=== PATIENT | female | born 1955 | race Caucasian/White ===

== ENCOUNTER 2022-11-14 20:29 | Inpatient (IN) | payer OTHER, MEDICAID ==
[~2022-11-14] VITALS: Ht 147.3 cm; Wt 49.9 kg
[2022-11-14 20:29] VITALS: BP 162/68; PULSE 80; RESP 17; TEMP 97.9; O2SAT 96
--- NOTE | 2022-11-14 20:34 | NUR ---
PT BIBA TO BED 03
--- NOTE | 2022-11-14 20:35 | NUR ---
PATIENT NICK VIA JENNI, FOUND WANDERING THE STREETS AND A FAMILY MEMBER PICKED HER UP AND CALLED 911 PATIENT HAS ALOC AND HAD A BLOOD SUGAR = 550 AT TIME OF ASSESSMENT FROM AMBULANCE
[2022-11-14] MEDS ORDERED: cefTRIAXone 1,000 MG in DEXT 5% MINI-BAG PLUS 50 ML IV ONE (20:40)
[2022-11-14] MEDS ORDERED: NACL 0.9% 1,000 ML IV SCH (20:40)
--- NOTE | 2022-11-14 20:53 | NUR ---
RADIOLOGY AT BEDSIDE
[2022-11-14] MEDS ORDERED: cefTRIAXone 1,000 MG VIAL ONE (21:02)
[2022-11-14 21:26] LABS: BASOPHILS # (AUTO) 0.1 K/uL (0.00-0.22); BASOPHILS % (AUTO) 0.9 % (0.0-2.0); EOSINOPHILS # (AUTO) 0.2 K/uL (0-0.4); EOSINOPHILS % (AUTO) 2.8 % (0.0-4.0); HEMATOCRIT 32.5 % (36-48); HEMOGLOBIN 11.9 g/dL (12.0-16.0); LYMPHOCYTES # (AUTO) 1.4 K/uL (2.5-16.5); LYMPHOCYTES % (AUTO) 23.3 % (20.5-51.1); MEAN CORPUSCULAR HEMOGLOBIN 33 pg (27-31); MEAN CORPUSCULAR HGB CONC 37 g/dL (33-37); MEAN CORPUSCULAR VOLUME 89.1 fL (80-94); MONOCYTES # (AUTO) 0.4 K/uL (0.8-1.0); PLATELET COUNT (AUTO) 193 K/uL (140-450); RED BLOOD CELL COUNT(AUTO) 3.65 MIL/uL (4.20-5.40); RED CELL DISTRIBUTION WIDTH 13.8 % (11.6-13.7); WHITE BLOOD COUNT (AUTO) 6.1 K/uL (4.8-10.8)
[2022-11-14 21:59] LABS: ALBUMIN 2.1 g/dL (3.4-5.0); ANION GAP 7.2 (8-16); CARBON DIOXIDE 30.7 mmol/L (21-32); CREATININE 0.7 mg/dL (0.6-1.3); TOTAL BILIRUBIN 0.5 mg/dL (0.0-1.0)
[2022-11-14 22:01] LABS: POTASSIUM 2.9 mmol/L (3.5-5.1)
--- NOTE | 2022-11-14 22:03 | NUR ---
RECEIVED CALL FROM THE LAB, PATIENT WITH CRITICAL LABS POTASSIUM = 2.9 GLUCOSE = [phone] DR. PARSONS NOTIFIED
[2022-11-14] MEDS ORDERED: KCL 20 MEQ IN 100 mL PREMIX 200 ML IV ONE (22:10)
[2022-11-14] MEDS ORDERED: NACL 0.9% 1,000 ML IV ONE (22:10)
[2022-11-14] MEDS ORDERED: POTASSIUM CHLORIDE 10 MEQ TABER PO ONE (22:10)
[2022-11-14 22:14] LABS: APPEARANCE,URINE CLEAR (CLEAR); BILIRUBIN,URINE NEGATIVE (NEGATIVE); BLOOD, URINE 1+ (NEGATIVE); COLOR,URINE YELLOW (YELLOW); LEUKOCYTE ESTERASE ,URINE NEGATIVE (NEGATIVE); NITRITE, URINE NEGATIVE (NEGATIVE); UGLUCOSE 2+ (NEGATIVE)
--- NOTE | 2022-11-14 22:53 | NUR ---
DID NOT ADMINISTER 2ND BOLUS OF NORMAL SALINE, PATIENT HAS BLE EDEMA. CURRENT IVF IS RUNNING AT 3ML/HR
[2022-11-14 22:56] LABS: RBC,URINE 0-5 /HPF (0-5)
--- NOTE | 2022-11-14 23:11 | NUR ---
CALL PLACED TO UNKNOWN FAMILY MEMBER, NO ANSWER, LEFT VOICEMAIL
[2022-11-14] MEDS: NACL 0.9% 1,000 ML IV SCH (23:15)
--- NOTE | 2022-11-14 23:21 | NUR ---
PATIENT IS AWARE THAT SHE IS IN THE HOSPITAL DOES NOT HAVE PHONE NUMBERS FOR ANY FAMILY MEMBERS DTR'S NAME IS EVIE COUSIN'S NAME IS KEYA PROVIDED PATIENT WITH CLEAN AND DRY ADULT DIAPER PER ER MD, PATIENT TO REMAIN NPO PATIENT IS PENDING ADMISSION
--- NOTE | 2022-11-15 00:19 | NUR ---
RECEIVED PHONE CALL FROM KEYA MAGAÑA WHO STATES THAT SHE IS PATIENT'S SISTER. SHE PICKED UP PATIENT FROM WANDERING THE STREET, TOOK PATIENT TO HER (KEYA'S) HOME AND CALLED 911. KEYA REPORTS THAT PATIENT WAS RECENTLY ADMITTED AT [facility] ON 11/10/2022 AND WAS DISCHARGED WITH AN UNKNOWN DIAGNOSIS/MEDICATIONS. PER KEYA, PATIENT'S DTR SONAM PICKED UP PATIENT FROM HOSPITAL. PATIENT'S CHILDREN DO NOT WANT TO BE INVOLVED WITH HER CARE. DTR SONAM MAKES PATIENT SIT OUTSIDE WHEN SHE LEAVES HER HOME TO GO TO WORK AND PATIENT IS NOT ALLOWED TO ENTER THE HOME AGAIN UNTIL DTR RETURNS HOME FROM WORK. PATIENT SPENDS HER DAYS SITTING ON THE FRONT PORCH OR WANDERING THE STREET. DOES NOT HAVE ACCESS TO FOOD PATIENT'S GRANDSON HAS FULL ACCESS AND USE OF PATIENT'S MAGGIE CARD PATIENT'S DTR AND SON-IN-LAW USE PATIENT'S MONEY AND DO NOT ALLOW PATIENT TO EAT WITH THEM, NOR POVIDE FOOD FOR PATIENT TO EAT. KEYA STATES THAT SHE IS UNAWARE OF PATIENT'S FULL MEDICAL HISTORY ASIDE FROM THE DIABETES AND THE DEPENDENCE ON INSULIN. PER KEYA, PATIENT HAS MEDICARE AND IEHP, DOES NOT KNOW NAME AND/OR CONTACT INFORMATION FOR A PCP, ALSO REPORTS THAT PATIENT LOST HER PURSE WITH ALL OF HER IDENTIFICATION AND INSURANCE CARDS. PATIENT HAS BEEN STAYING INTERMITTENTLY AT [facility] AND HAS HAD ALTERED MENTAL STATUS FOR A FEW WEEKS "PROBABLY DUE TO HER DIABETES" AND HAS SWOLLEN FEET AND LEGS PROBABLY 2 OR MORE DAYS. KEYA STATES THAT PATIENT WILL NEED TO BE PLACED IN A [facility] OR OTHER CARE FACILITY BECAUSE SHE CAN NOT CARE FOR HERSELF AND HER CHILDREN DO NOT WANT TO BE INVOLVED. VERBALLY NOTIFIED DR. FERRIS REGARDING CONVERSATION WITH PATIENT'S FAMILY MEMBER.
--- NOTE | 2022-11-15 01:26 | NUR ---
pericare provided for patient. pt tolerated well.
--- NOTE | 2022-11-15 03:06 | NUR ---
[facility] CONTACTED AND SPOKE SONU Rowe REPORT # [id number] Addendum: 11/15/22 at 0528 by [email or web address] FAX NUMBERS TO SEND REPRT [phone]
--- NOTE | 2022-11-15 04:29 | NUR ---
PT SWITCHED TO BED 4 FROM BED 3
[2022-11-15] MEDS: BLOOD GLUCOSE MONITORING 1 DEV DEV FS SCH ×6 (04:44→20:43)
--- NOTE | 2022-11-15 05:00 | NUR ---
Note suzie in EDM - 11/15/22 at 0547 by [email or web address] UNABLE TO SCAN PATIENT TO ADMINISTER MEDICATIONS DUE TO INCORRECT BAR CODE PRINTING OUT FROM ER. CHARGE NURSE (SOFY IS AWARE) MEDICATIONS ADMINISTERED TO PATIENT: -MORPHINE 4MG ZOFRAN 2MG PATIENT HAS ORDER FOR VANCOMYCIN, UNABLE TO START IV ABX. PATIENT IS PENDING BLOOD CULTURES, (DR. FERRIS) IS AWARE
[2022-11-15] MEDS: INSULIN LISPRO SLIDING SCALE 100 UNITS/ML VIAL SUBQ PRN ×4 (05:04→20:43)
--- NOTE | 2022-11-15 05:04 | NUR ---
UNABLE TO SCAN PATIENT TO ADMINISTER MEDICATIONS DUE TO INCORRECT BAR CODE PRINTING OUT FROM ER. CHARGE NURSE (SOFY IS AWARE) MEDICATION: INSULIN 6 UNITS
[2022-11-15] MEDS ORDERED: MORPHINE SULFATE 2 MG/ML SYR IVP PRN (07:20)
[2022-11-15] MEDS ORDERED: ACETAMINOPHEN 325 MG TAB PO PRN (07:20)
[2022-11-15] MEDS ORDERED: DOCUSATE SODIUM 100 MG GELCAP PO PRN (07:20)
[2022-11-15] MEDS ORDERED: ONDANSETRON 4 MG/2 ML VIAL IVP PRN (07:20)
[2022-11-15] MEDS ORDERED: ZOLPIDEM 10 MG TAB PO PRN (07:20)
--- NOTE | 2022-11-15 07:27 | NUR ---
Pt report given to NATALIA. Transfer of care at this time.
--- NOTE | 2022-11-15 07:30 | NUR ---
Report recieved from WILLAM Marie for transfer of care.
[2022-11-15 07:33] LABS: ANION GAP 8.8 (8-16); CARBON DIOXIDE 28.8 mmol/L (21-32); CREATININE 0.5 mg/dL (0.6-1.3); POTASSIUM 3.6 mmol/L (3.5-5.1)
--- NOTE | 2022-11-15 07:38 | NUR ---
Spoke to Ines Kan, patients niece, states she had a missed phone call. Informed her that we are unsure who called her, but that patient is here at the hospital.
[2022-11-15] MEDS ORDERED: MAG SULF 2000 MG/WATER PREMIX 50 ML IV PRN (08:00)
--- NOTE | 2022-11-15 08:17 | NUR ---
Dr. Marquez, admitting doctor, evaluating patient at bedside. Recieved orders for Blood sugar check at 0900. Orders carried out.
--- NOTE | 2022-11-15 08:22 | NUR ---
The patient's care was reviewed and supervised by [facility], RN.
[2022-11-15 08:35] VITALS: BP 135/75; PULSE 66; PULSE 73; RESP 18; TEMP 97.6; O2SAT 99
--- NOTE | 2022-11-15 08:35 | NUR ---
RECEIVED PT FROM PRESCHOOL PARAPROFESSIONAL VIA JENNI, PT IS AWAKE, ALERT, ON ROOM AIR, IV LINE NOTED ON THE LEFT AC G./ 20 WITH IVF NS INFUSING AT 100ML/HR, PITTING EDEMA +1 WAS NOTED ON THE BILATERAL LOWER EXTREMITIES, NO SIGN OF DISTRESS NOTED AND WILL CONTINUE TO MONITOR PT.
[2022-11-15] MEDS: NACL 0.9% 1,000 ML IV SCH ×2 (09:15→19:40)
--- NOTE | 2022-11-15 10:54 | NUR ---
RECEIVED A TELEPHONE ORDER TO START PT ON A DIABETIC DIET
[2022-11-15 12:00] VITALS: BP 149/74; PULSE 69; PULSE 85; RESP 18; TEMP 97; O2SAT 100
[2022-11-15 16:00] VITALS: BP 154/75; PULSE 67; PULSE 73; RESP 18; TEMP 97.9; O2SAT 99
--- NOTE | 2022-11-15 19:38 | NUR ---
ENDORSED PT TO NIGHT RN FOR CONTINUITY OF CARE, PT IS STABLE AT THIS TIME.
--- NOTE | 2022-11-15 19:40 | NUR ---
RECEIVED PT FROM AM NURSE FOR CONTINUITY OF CARE. PT IS STABLE
[2022-11-15 20:00] VITALS: BP 157/74; PULSE 73; PULSE 84; RESP 18; TEMP 97.7; O2SAT 98; O2SAT 99
[2022-11-15] MEDS: LORazepam 2 MG/ML VIAL IVP PRN (21:57)
[2022-11-16] VITALS: BP 136/81; PULSE 64; PULSE 80; RESP 18; TEMP 97.4; O2SAT 98
[2022-11-16] MEDS: INSULIN LISPRO SLIDING SCALE 100 UNITS/ML VIAL SUBQ PRN ×4 (00:25→23:58)
[2022-11-16] MEDS: BLOOD GLUCOSE MONITORING 1 DEV DEV FS SCH ×6 (00:26→19:51)
[2022-11-16] MEDS: LORazepam 2 MG/ML VIAL IVP PRN ×2 (03:17→20:42)
[2022-11-16 04:00] VITALS: BP 140/79; PULSE 76; PULSE 86; RESP 18; TEMP 98.1; O2SAT 98
[2022-11-16] MEDS: NACL 0.9% 1,000 ML IV SCH (05:01)
[2022-11-16 05:29] LABS: BASOPHILS % (AUTO) 0.6 % (0.0-2.0); EOSINOPHILS # (AUTO) 0.2 K/uL (0-0.4); EOSINOPHILS % (AUTO) 3.8 % (0.0-4.0); HEMATOCRIT 31.6 % (36-48); HEMOGLOBIN 11.4 g/dL (12.0-16.0); LYMPHOCYTES % (AUTO) 36.4 % (20.5-51.1); MEAN CORPUSCULAR HEMOGLOBIN 33 pg (27-31); MEAN CORPUSCULAR HGB CONC 36 g/dL (33-37); MEAN CORPUSCULAR VOLUME 90.3 fL (80-94); MONOCYTES # (AUTO) 0.4 K/uL (0.8-1.0); MONOCYTES % (AUTO) 6.5 % (1.7-9.3); NEUTROPHILS # (AUTO) 2.9 K/uL (1.8-7.7); NEUTROPHILS % (AUTO) 52.7 % (42.2-75.2); PLATELET COUNT (AUTO) 162 K/uL (140-450); RED CELL DISTRIBUTION WIDTH 13.5 % (11.6-13.7); WHITE BLOOD COUNT (AUTO) 5.6 K/uL (4.8-10.8)
[2022-11-16 05:39] LABS: ANION GAP 7.7 (8-16); CARBON DIOXIDE 27.6 mmol/L (21-32); CREATININE 0.6 mg/dL (0.6-1.3); POTASSIUM 3.3 mmol/L (3.5-5.1)
--- NOTE | 2022-11-16 07:15 | NUR ---
ENDORSED PT TO AM NURSE FOR CONTINUITY OF CARE.PT IS STABLE
[2022-11-16 08:00] VITALS: BP 170/57; PULSE 76; RESP 18; TEMP 97.4; O2SAT 98; O2SAT 99
[2022-11-16] MEDS: POTASSIUM CHLORIDE 10 MEQ TABER PO PRN (08:13)
[2022-11-16] MEDS ORDERED: lisinopriL 20 MG TAB PO SCH (09:58)
--- NOTE | 2022-11-16 11:24 | NUR ---
PATIENT HAS BEEN SCREENED AND CATEGORIZED MODERATE NUTRITION RISK. PATIENT WILL BE SEEN WITHIN 3-5 DAYS OF ADMISSION. 11/14/22-11/19/[address]
[2022-11-16 16:00] VITALS: BP 118/66; PULSE 70; RESP 18; TEMP 97.2; O2SAT 95
--- NOTE | 2022-11-16 18:40 | NUR ---
PT RESTING IN BED, EATING DINNER. FAMILY AT BEDSIDE. AAO x2-3. RESPIRATIONS EVEN AND UL ON RA. NO SIGNIFICANT CHANGES THROUGHOUT SHIFT. IV SITE TO RFA 24G, INTACT AND WNL. BED IN LOWEST POSITION, CALL LIGHT IN REACH, SAFETY MEASURES IN PLACE.
--- NOTE | 2022-11-16 19:11 | NUR ---
REPORT GIVEN TO PM NURSE FOR CONTINUITY OF CARE.
--- NOTE | 2022-11-16 19:30 | NUR ---
RECEIVED PT FROM AM NURSE FOR CONTINUITY OF CARE. NIECE FEEDING PATIENT AT BEDSIDE. PT APPEARS SLEEPY. ON ROOM AIR, BREATHING EVEN AND UNLABORED.IV ON R HAND G24, SL. ALL PRECAUTIONS IN PLACE. CALL LIGHT WITHIN REACH. WILL CONTINUE TO MONITOR.
[2022-11-16 20:00] VITALS: BP 182/73; PULSE 71; RESP 18; TEMP 97.3; O2SAT 98; O2SAT 99
--- NOTE | 2022-11-16 20:42 | NUR ---
PT VERY RESTLESS IN BED. ATIVAN 2MG IVP GIVEN. WILL CONTINUE TO MONITOR.
[2022-11-17] MEDS: LORazepam 2 MG/ML VIAL IVP PRN ×4 (00:39→21:11)
--- NOTE | 2022-11-17 00:45 | NUR ---
PT STILL VERY RESTLESS IB BED. ATIVAN 2MG GIVEN.WILL CONTINUE TO MONITOR
[2022-11-17] MEDS ORDERED: HALOPERIDOL IM 5 MG/ML VIAL ONE (04:20)
[2022-11-17] MEDS ORDERED: HALOPERIDOL IM 5 MG/ML VIAL IM ONE (04:20)
[2022-11-17] MEDS ORDERED: hydrALAZINE 20 MG/ML VIAL IVP ONE (04:30)
[2022-11-17] MEDS: BLOOD GLUCOSE MONITORING 1 DEV DEV FS SCH ×6 (04:36→20:32)
[2022-11-17] MEDS: INSULIN LISPRO SLIDING SCALE 100 UNITS/ML VIAL SUBQ PRN ×2 (04:37→09:22)
--- NOTE | 2022-11-17 04:39 | NUR ---
PT VERY RESTLESS. ATIVAN GIVEN BUT NOT WORKING. MANAGER TRANSPLANT LYNN AT BEDSIDE FOR SAFETY. NOTIFIED MD AND ASKED IF HE WANTS SITTER. ORDERED HALDOL 5MG IM. WILL CONTINUE TO MONITOR.
--- NOTE | 2022-11-17 04:41 | NUR ---
VITALS STABLE.BP -141/60, NC 92, TEMP 97.8, RR 18 O2 AT 96%. WILL CONTINUE TO MONITOR
[2022-11-17 06:07] LABS: BASOPHILS # (AUTO) 0.1 K/uL (0.00-0.22); BASOPHILS % (AUTO) 0.9 % (0.0-2.0); EOSINOPHILS # (AUTO) 0.1 K/uL (0-0.4); EOSINOPHILS % (AUTO) 2.1 % (0.0-4.0); HEMATOCRIT 30.3 % (36-48); HEMOGLOBIN 10.8 g/dL (12.0-16.0); LYMPHOCYTES # (AUTO) 1.6 K/uL (2.5-16.5); LYMPHOCYTES % (AUTO) 26.3 % (20.5-51.1); MEAN CORPUSCULAR HEMOGLOBIN 32 pg (27-31); MEAN CORPUSCULAR HGB CONC 36 g/dL (33-37); MEAN CORPUSCULAR VOLUME 89.7 fL (80-94); MONOCYTES # (AUTO) 0.5 K/uL (0.8-1.0); MONOCYTES % (AUTO) 7.4 % (1.7-9.3); NEUTROPHILS # (AUTO) 3.9 K/uL (1.8-7.7); NEUTROPHILS % (AUTO) 63.3 % (42.2-75.2); PLATELET COUNT (AUTO) 121 K/uL (140-450); RED BLOOD CELL COUNT(AUTO) 3.37 MIL/uL (4.20-5.40); RED CELL DISTRIBUTION WIDTH 13.8 % (11.6-13.7); WHITE BLOOD COUNT (AUTO) 6.2 K/uL (4.8-10.8)
[2022-11-17 06:28] LABS: ANION GAP 10.5 (8-16); CREATININE 0.6 mg/dL (0.6-1.3); POTASSIUM 3.5 mmol/L (3.5-5.1)
--- NOTE | 2022-11-17 06:33 | NUR ---
PT IS STABLE. NO ACUTE EVENTS THROUGHOUT THE NIGHT. ALL NEEDS MET.NO S/SX OF DISTRESS. NO COMPLAINS OF PAIN AT THIS MOMENT. ALL PRECAUTIONS IN PLACE. CALL LIGHT WITHIN REACH. WILL ENDORSE TO DAY SHIFT NURSE.
--- NOTE | 2022-11-17 07:53 | NUR ---
RECEIVED PATIENT FROM PM NURSE FOR CONTINUATION OF CARE. PATIENT SEEN ON BED, MOVING AND REMOVING CLOTGHING. PATIENT PROPERLLY PLACED BACK ON BED IN SUPINE POSITION. PATIENT GOWN CHANGED, WARM BLANKETS GIVEN. MD CONTACTED ON PATIENT UPDATE. PATIENT CARE RESUMED
[2022-11-17 08:00] VITALS: BP 122/88; PULSE 68; RESP 16; TEMP 98.1; O2SAT 97
[2022-11-17] MEDS: lisinopriL 20 MG TAB PO SCH (08:45)
[2022-11-17] MEDS ORDERED: ATOR20TA PO (10:23)
[2022-11-17] MEDS ORDERED: LISI20TA29 PO (10:23)
[2022-11-17] MEDS ORDERED: INSU100S22 SUBQ (10:23)
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
--- NOTE | 2022-11-17 14:28 | NUR ---
DC [age] YRS OLD FEMALE PATIENT WAS ADMITTED FROM HOME WITH A DX OF HYPERGLYCEMIA, HYPOKALEMIA ,AMS. PATIENT HAS A HX OF DM, AND HTN. CXR SHOWED BIBASAL ATELECTASIS. ADMINISTERED HOME MEDS. CONSULTED WITH CONTROL BOARD OPERATOR. DC PLAN TO GO HOME WHEN STABLE. CM TO FOLLOW Addendum: 11/18/22 at 1437 by DUANE MONTAÑO CM RECEIVED ORDER FOR PATIENT TO GO TO SNF. FAXED ALL PAPERWORK TO [facility]. SPOKE WITH WENDY FROM [facility] LOCATED AT [address] [phone]. PATIENT WILL BE GOING TO ROOM 9-A UND[address] FULTON. WENDY FROM [facility] WILL BE SETTING UP TRASNPORT. WILL UPDATE NURSE WITH JEREMIE. BUT NURSE TI IS AWARE OF THE ABOVE INFORMATION. Addendum: 11/18/22 at 1538 by DUANE MONTÑAO CM PATIENT WILL BE PICKED UP BETWEEN [phone] NURSE TI AWARE OF THE ABOVE INFO. Addendum: 11/18/22 at 1540 by DUANE MONTAÑO CM TRANSPORT IS [facility] Addendum: 11/19/22 at 0903 by DUANE MONTAÑO PER CARISSA AUDIOVISUAL PRODUCTION SPECIALIST WENT TO ROOM AND FOUND TWO NUMBER WRITTEN ON A PIECE OF PAPER 1. [facility] CALLED YESTERDAY 11/19/2022 AFTER TRANSPORTATION WAS ARRANGED BUT THEY DIDN'T ANSWER. 2. KATHERINE/ JUSTIN CALLED 11/18/2022 AFTER TRANSPORTATION WAS SET BUT NO ANSWER. PER CARISSA SHE WAS ABLE TO GET A HOLD OF SOME ONE FROM . CALLED TODAY 11/19/2022 BUT AGAIN NO ANSWER BUT LEFT A MESSAGE ASKING THEM TO CALL ME BACK SOON POSSIBLE.
[2022-11-17 16:00] VITALS: BP 151/66; PULSE 72; RESP 18; TEMP 97.6; O2SAT 100
--- NOTE | 2022-11-17 19:30 | NUR ---
RECD. RESTING IN SHREE COMFORTABLY SLEEPING, EASILY AROUSABLE. A/OX1, CONFUSED. RESPIRATION EVEN AND UNLABORED. IV SALINE LOCK AT THE RIGHT FOREARM G24 PATENT AND INTACT. TRYING TO GET OUT OF BED WHEN AWAKE. FALL RISK, SAFETY MEASURES ENFORCED. ON 1:1 SITTER MONITORING PATIENT NEAR BEDSIDE. NO APPEARANCE OF PAIN OR DISCOMFORT NOTED, FLACC -0.
[2022-11-17 20:00] VITALS: BP 149/76; PULSE 73; RESP 18; TEMP 97.2; O2SAT 95
--- NOTE | 2022-11-17 20:00 | NUR ---
Patient's Plan of Care was discussed and reviewed with CHAZ PEREA:
--- NOTE | 2022-11-17 21:11 | NUR ---
PATIENT RESTLESS AND AGITATED, ATIVAN GIVEN ORDERED. SITTER AT THE BEDSIDE FOR SAFETY.
--- NOTE | 2022-11-17 22:10 | NUR ---
PT STILL RESTLESS AND MOVING IN BED. SITTER AT THE BEDSIDE FOR SAFETY.
--- NOTE | 2022-11-17 22:15 | NUR ---
NO AGITATION NOTED, PATIENT SLEEPING ON HER RIGHT SIDE. SITTER MONITORING CONTINUOUSLY. Addendum: 11/17/22 at 2234 by Kennedi Guadarrama LVN CORRECTION: TIME OF THIS NOTES SHOULD BE 2230 NOT 2215.
--- NOTE | 2022-11-17 22:15 | NUR ---
INFORMED DR. CHAVEZ, PATIENT STILL RESTLESS EVEN ATIVAN ADMINISTERED AT 2110. INQUIRED IF SHE CAN ORDER HALDOL.
--- NOTE | 2022-11-18 | NUR ---
NO AGITATION NOTED. SLEEPING COMFORTABLY IN BED, RESPIRATION EVEN AND UNLABORED.
[2022-11-18] MEDS: INSULIN LISPRO SLIDING SCALE 100 UNITS/ML VIAL SUBQ PRN (01:26)
--- NOTE | 2022-11-18 02:00 | NUR ---
PULLED OUT IV LINE. WILL INSERT ANOTHER. CONTINUED SLEEPING IN BED.
--- NOTE | 2022-11-18 04:00 | NUR ---
TAKING OFF GOWN. CLEANSED, CHANGED DIAPER. MADE COMFORTABLE IN BED WITH WARM BLANKET.
[2022-11-18] MEDS: BLOOD GLUCOSE MONITORING 1 DEV DEV FS SCH ×4 (04:46→12:00)
[2022-11-18] MEDS: HALOPERIDOL IM 5 MG/ML VIAL IM PRN ×2 (04:47→13:09)
--- NOTE | 2022-11-18 04:47 | NUR ---
WITH AGITATION, RESTLESS. MEDICATED WITH HALDOL IM PER MD ORDER.
--- NOTE | 2022-11-18 05:00 | NUR ---
NEW IV LINE INSERTED BY RN AT THE LEFT FOREARM G20.
--- NOTE | 2022-11-18 05:30 | NUR ---
NO AGITATION, SLEEPING COMFORTABLY IN BED. SAFETY MAINTAINED.
--- NOTE | 2022-11-18 07:00 | NUR ---
ENDORSED TO WILLAM LUKE FOR CONTINUITY OF CARE. PATIENT IS STABLE.
[2022-11-18 07:01] LABS: ANION GAP 11.2 (8-16); BASOPHILS % (AUTO) 0.8 % (0.0-2.0); CREATININE 0.6 mg/dL (0.6-1.3); EOSINOPHILS # (AUTO) 0.1 K/uL (0-0.4); EOSINOPHILS % (AUTO) 2.3 % (0.0-4.0); HEMATOCRIT 30.2 % (36-48); HEMOGLOBIN 10.8 g/dL (12.0-16.0); LYMPHOCYTES % (AUTO) 24.2 % (20.5-51.1); MEAN CORPUSCULAR HEMOGLOBIN 32 pg (27-31); MEAN CORPUSCULAR HGB CONC 36 g/dL (33-37); MEAN CORPUSCULAR VOLUME 88.9 fL (80-94); MONOCYTES # (AUTO) 0.4 K/uL (0.8-1.0); MONOCYTES % (AUTO) 8.3 % (1.7-9.3); NEUTROPHILS # (AUTO) 2.8 K/uL (1.8-7.7); NEUTROPHILS % (AUTO) 64.4 % (42.2-75.2); PLATELET COUNT (AUTO) 162 K/uL (140-450); POTASSIUM 3.2 mmol/L (3.5-5.1); RED BLOOD CELL COUNT(AUTO) 3.39 MIL/uL (4.20-5.40); RED CELL DISTRIBUTION WIDTH 13.2 % (11.6-13.7); WHITE BLOOD COUNT (AUTO) 4.3 K/uL (4.8-10.8)
--- NOTE | 2022-11-18 07:31 | NUR ---
RECEIVED PATIENT FROM PM NURSE FOR CONTINUITY OF CARE. PATIENT SEEN ON BED ASLEEP. NORMAL RISE AND FALL OF CHEST. PATIENT PULLED OUT IV PRIOR TO SLEEPING.
[2022-11-18 08:00] VITALS: BP 149/76; PULSE 73; RESP 18; TEMP 97.2; O2SAT 95
[2022-11-18] MEDS: lisinopriL 20 MG TAB PO SCH (09:50)
[2022-11-18] MEDS: LORazepam 2 MG/ML VIAL IVP PRN ×2 (10:04→14:43)
--- NOTE | 2022-11-18 13:39 | NUR ---
Venue Coordinator AMPOULE FILLER AND SEALER went to pts. room twice, left messages on the emergency phone number listed, no answer. AMPOULE FILLER AND SEALER met with pt. during lunch time. She was needing assistance with eating. Pt. was too groggy to participate in this interview. Pt. was falling asleep.
[2022-11-18 15:20] VITALS: BP 149/76; PULSE 73; RESP 18; TEMP 97.2
[2022-11-18] MEDS: POTASSIUM CHLORIDE 10 MEQ TABER PO PRN (15:27)
== END 2022-11-18 16:20 | DRG 637 ==
LOC: MED 20:29 → MMU 23:22 → MTU 11-15 06:34
PROVIDERS: ADMIT Family Medicine; ATTEND Family Medicine
DX: E11.65 Type 2 diabetes mellitus with hyperglycemia (principal); E43 Unspecified severe protein-calorie malnutrition; G93.41 Metabolic encephalopathy; I50.43 Acute on chronic combined systolic (congestive) and diastolic (congestive) heart failure; T76.91XA Unspecified adult maltreatment, suspected, initial encounter; I11.0 Hypertensive heart disease with heart failure; E87.6 Hypokalemia; F17.210 Nicotine dependence, cigarettes, uncomplicated; Z68.23 Body mass index [BMI] 23.0-23.9, adult
CPT/HCPCS: 36415; 36600; 71045; 80048; 80053; 81001; 82803; 82948; 83036; 83605; 83735; 83880; 84484; 85025; 87040; 87081; 87086; 93005; 96374; 96375; 97110; 99285; J0360; J0696; J1630; J1644; J1815; J2060; J2270; J3475; J3480; Q0092